=== PATIENT | male | born 1960 | race Caucasian/White ===

== ENCOUNTER 2016-05-31 12:22 | Emergency (ER) | payer OTHER ==
[2016-05-31 12:27] VITALS: BP 142/83; PULSE 59; RESP 16; TEMP 97.3; O2SAT 97
--- NOTE | 2016-05-31 13:32 | EDPHY ---
H & P Stated Complaint: cut left index finger with knife. Time Seen by Provider: 05/31/16 12:38 HPI/ROS: Chief complaint: Left middle finger laceration History of present illness: This is a 56-year-old male who presents to the emergency department for left middle finger laceration. Patient was using a razor blade at work when it slipped cutting the top of his left middle finger. There has been minimal pain. Minimal bleeding, controlled with a dressing. He states he can still flex and extend the finger without difficulty. No report of abnormal coolness or paresthesias in the finger. No other trauma reported. His tetanus is up-to-date. - Personal History Current Tetanus Diphtheria and Acellular Pertussis (TDAP): Yes Tetanus Vaccine Date: within 10 years - Medical/Surgical History Hx Asthma: No Hx Chronic Respiratory Disease: No Hx Diabetes: No Hx Cardiac Disease: No Hx Renal Disease: No Hx Cirrhosis: No Hx Alcoholism: No Hx HIV/AIDS: No Hx Splenectomy or Spleen Trauma: No Other PMH: ortho - Social History Smoking Status: Never smoked - Physical Exam Exam: General: Alert, nontoxic Skin: 1 cm laceration over the mid aspect of the extensor surface of the left 3rd finger. No foreign bodies or deep structures visualized on inspection. Musculoskeletal: Patient has good flexion extension in the DIPJ, PIP and MCP joint. Vascular: Capillary refill brisk in the left 3rd finger. Neurologic: Sensation intact using light touch and two-point discrimination in the left 3rd finger Constitutional: Initial Vital Signs Temperature (C) 36.3 C 05/31/16 12:24 Heart Rate 59 L 05/31/16 12:24 Respiratory Rate 16 05/31/16 12:24 Blood Pressure 142/83 H 05/31/16 12:24 O2 Sat (%) 97 05/31/16 12:24 O2 Delivery Mode Room Air Allergies/Adverse Reactions: No Known Allergies Allergy (Unverified 04/18/14 09:22) Home Medications: Medication Instructions Recorded No Medications [No Meds] 03/12/13 Medical Decision Making Procedures: Procedure: Laceration repair. Verbal consent was obtained from the patient. The 1 cm laceration on the left 3rd finger was anesthetized in the usual fashion. The wound was irrigated, draped and explored to its base with a gloved finger. There were no deep structures involved. No tendon injury was identified. The wound was repaired with 5 0 Prolene, 4 simple interrupted sutures. The wound repair was simple. The procedure was performed by myself. Differential Diagnosis: Patient seen under the supervision of my secondary supervising physician Dr. Wyatt Dill. Patient presents to the emergency department for a left 3rd finger laceration. He has good musculoskeletal control of the finger. He is neurovascularly intact. I do not appreciate evidence of foreign body contamination or deep structure injury. Wound is cleaned, repaired and dressed. He is discharged home and asked to follow up with worker's compensation or a hand doctor for recheck. Return precautions are given. Patient voiced understanding and agreement with plan. Departure - Departure Disposition: Home, Routine, Self-Care Clinical Impression: Finger laceration Qualifiers: Encounter type: initial encounter Qualified Code(s): S61.219A - Laceration without foreign body of unspecified finger without damage to nail, initial encounter Condition: Good Instructions: Care For Your Stitches (ED), Laceration (ED), Acute Wounds (ED) Additional Instructions: Follow-up with hand surgery or worker's compensation for recheck Stitches to be removed in 7 days If symptoms worsen or new symptoms develop return to the emergency department for recheck Referrals: Eva Bundy MD [Primary Care Provider] - As per Instructions Salvatore Boykin MD [Medical Doctor] - As per Instructions
== END 2016-05-31 14:03 | disposition home or self-care (01) ==
PROC: 0HQGXZZ Repair Left Hand Skin, External Approach (ICD-10-PCS; principal; 2016-05-31)
DX: S61.213A Laceration without foreign body of left middle finger without damage to nail, initial encounter (principal); W45.8XXA Other foreign body or object entering through skin, initial encounter; Y92.69 Other specified industrial and construction area as the place of occurrence of the external cause; Y99.0 Civilian activity done for income or pay; Y93.89 Activity, other specified

== ENCOUNTER 2017-03-09 19:52 | Emergency (ER) | payer OTHER ==
[2017-03-09 19:59] VITALS: RESP 16
--- NOTE | 2017-03-09 20:21 | EDPHY ---
H & P Stated Complaint: Lac to head no LOC Time Seen by Provider: 03/09/17 20:18 HPI/ROS: HPI: This is a 57-year-old male presents with Chief Complaint: Scalp laceration Location: Scalp Quality: Laceration Duration: Prior to arrival Signs and Symptoms: No LOC, no neck pain, + bleeding, no radiation, no numbness , no weakness, no tingling, no decreased range of motion, no swelling, + pain Timing: Acute Severity: Moderate Context: Patient reports that he was out walking his dogs when they saw something that cause them to alarm and they pulled on the leash. This in turn cause the patient to lose his balance. He fell forward and hit a sign with the top of his head. He believes the sign had a piece of metal on it that cut his scalp. He felt immediate pain and bleeding started. He applied direct pressure with bleeding cessation. He denies neck pain/LOC. He was ambulatory at the scene. Does not take any blood thinners. Drove self to the emergency room. Modifying Factors: Direct pressure Comment: ROS: see HPI Constitutional: No fever, no chills, no weight loss Eyes: No blurred vision Respiratory: No shortness of breath, no cough Cardiovascular: No chest pain Gastrointestinal: No nausea, no vomiting no diarrhea Genitourinary: No dysuria Extremities: No myalgias Neurologic: No weakness, no numbness Skin: No rashes Hematologic: No bruising, no bleeding MEDICAL/SURGICAL/SOCIAL HISTORY: Medical history: Generally healthy. Does not take any regular medications. Surgical history: Orthopedic surgery Social history: . CONSTITUTIONAL: Polite and cooperative adult white male, awake and alert, no obvious distress HEENT: 6.5 cm deep laceration over left parietal scalp, 1.5 cm superficial laceration in the middle of forehead near the hairline. normocephalic, PERRL, EOMI. no globe entrapment, no raccoon eyes. no Johnson signs.Tympanic membranes clear. No tympanic membrane rupture. Nares patent; no septal hematoma. Oropharynx clear, no exudate and moist pink mucosa. No malocclusion. no dental trauma. Airway patent. No lymphadenopathy. NECK: supple, no midline tenderness, flexion 45 degrees, extension 45 degrees, right and left lateral flexion 45 degrees. No meningismus. Cardiovascular: Normal S1/S2, regular rate, regular rhythm, without murmur rub or gallop. PULMONARY/CHEST: Symmetrical and nontender. no crepitus. Clear to auscultation bilaterally. Good air movement. No accessory muscle usage. ABDOMEN: Soft, nondistended, nontender, no ecchymosis, no rebound, no guarding , no peritoneal signs, no masses or organomegaly. No CVAT. PELVIC: no pain with rocking; bilateral hips flexion 125 degrees, extension 30 degrees, with no pain internal rotation and no pain external rotation. BACK: No midline tenderness, no paraspinous spasm, deep tendon reflexes 2/2, no pain with straight leg raise EXTREMITIES: 2/2 pulses, no deformities, no clubbing, no cyanosis or edema. NEUROLOGICAL: no focal neuro deficits. GCS 15. SKIN: Warm and dry, no erythema. no rash. Good capillary refill. Source: Patient Exam Limitations: No limitations - Personal History Current Tetanus/Diphtheria Vaccine: Yes Current Tetanus Diphtheria and Acellular Pertussis (TDAP): Yes Tetanus Vaccine Date: within 10 years - Medical/Surgical History Hx Asthma: No Hx Chronic Respiratory Disease: No Hx Diabetes: No Hx Cardiac Disease: No Hx Renal Disease: No Hx Cirrhosis: No Hx Alcoholism: No Hx HIV/AIDS: No Hx Splenectomy or Spleen Trauma: No Other PMH: ortho - Social History Smoking Status: Never smoked Constitutional: Initial Vital Signs Temperature (C) 36.6 C 03/09/17 19:57 Heart Rate 71 03/09/17 19:57 Respiratory Rate 16 03/09/17 19:57 Blood Pressure 153/102 H 03/09/17 19:57 O2 Sat (%) 94 03/09/17 19:57 O2 Delivery Mode Room Air Allergies/Adverse Reactions: No Known Allergies Allergy (Verified 03/09/17 19:59) Home Medications: Medication Instructions Recorded No Medications [No Meds] 03/12/13 Medical Decision Making Procedures: Procedure: Laceration repair. Verbal consent was obtained from the patient. The 6.5 cm deep, simple laceration over left parietal scalp was anesthetized in the usual fashion 5 mL of 1% lidocaine with epinephrine. The wound was irrigated, draped and explored to its base with a gloved finger. There were no deep structures involved. No tendon injury was identified. The wound was repaired with #10 grisel. Good hemostasis was achieved and patient tolerated procedure well. Bacitracin applied. The procedure was performed by myself. Procedure: Laceration repair. Verbal consent was obtained from the patient. The 1.5 cm superficial, simple laceration in the middle of forehead near the hairline was anesthetized in the usual fashion 2 mL of 1% lidocaine with epinephrine. The wound was irrigated, draped and explored to its base with a gloved finger. There were no deep structures involved. No tendon injury was identified. The wound was repaired with #8, 6 0 Vicryl 3 buried and 5 simple interrupted. Good hemostasis was achieved and patient tolerated procedure well. Bacitracin and clean sterile dressing applied. The procedure was performed by myself. ED Course/Re-evaluation: Wound and laceration repair Tetanus up-to-date No signs of neurovascular compromise/tenting of skin/compartment syndrome/ extremities and joints examined above and below area of concern and are neurovascularly intact/concussion/LOC. Fall accidental in nature Lacerations repaired with grisel and absorbable sutures. Reynolds given for pain. This patient was seen under the supervision of my primary supervising physician. I evaluated care for this patient independently. Discussed this patient with Dr. Verde who did not see the patient. Differential Diagnosis: Head injury including but not limited to concussion, skull fracture, intraparenchymal contusion, subarachnoid, subdural and epidural hematoma. Departure - Departure Disposition: Home, Routine, Self-Care Clinical Impression: Scalp laceration Qualifiers: Encounter type: initial encounter Qualified Code(s): S01.01XA - Laceration without foreign body of scalp, initial encounter Laceration of forehead without complication Qualifiers: Encounter type: initial encounter Qualified Code(s): S01.81XA - Laceration without foreign body of other part of head, initial encounter Condition: Good Instructions: Head Injury (ED), Staple Care (ED), Care For Your Absorbable Stitches (ED) Additional Instructions: Keep the dressing dry and in place for 48 hours. After 48 hours, you may remove the dressing; wash the site daily with mild soap and water; then pat dry. Take Tylenol Ibuprofen 600 mg every 8 hours with food as needed for pain. Apply ice for 30 minutes at a time; 2-3 times per day for the next 1-2 days. Monitor for signs and symptoms of concussion. Return to the emergency room in 7 days to have your grisel removed. The laceration on your forehead was closed with absorbable sutures and these will slowly dissolve on their own. Referrals: Eva Bundy MD [Primary Care Provider] - As per Instructions
[2017-03-09] MEDS ORDERED: HYDROCODONE/APAP 5/325 TAB PO ONE (20:48)
[2017-03-09] MEDS ORDERED: HYDROCOD/APAP 5/325 PREPACK#6 BTL TAKEHOME ONE (20:49)
[2017-03-09 21:19] VITALS: BP 146/88; PULSE 76; TEMP 98.1; O2SAT 96
== END 2017-03-09 21:13 | disposition home or self-care (01) ==
PROC: 0HQ0XZZ Repair Scalp Skin, External Approach (ICD-10-PCS; principal; 2017-03-09)
PROC: 0HQ1XZZ Repair Face Skin, External Approach (ICD-10-PCS; 2017-03-09)
DX: S01.01XA Laceration without foreign body of scalp, initial encounter (principal); S01.81XA Laceration without foreign body of other part of head, initial encounter; W01.198A Fall on same level from slipping, tripping and stumbling with subsequent striking against other object, initial encounter; Y99.8 Other external cause status; Y93.K1 Activity, walking an animal

== ENCOUNTER → 2017-03-11 | Outpatient (CLI) | payer OTHER | LOC: BMCIMAGING 12:29 | PROVIDERS: ATTEND Family Medicine | DX: M47.892 Other spondylosis, cervical region (principal) ==

== ENCOUNTER 2017-09-12 11:03 | Emergency (ER) | payer OTHER ==
[2017-09-12 11:08] VITALS: BP 145/103
--- NOTE | 2017-09-12 11:20 | CPEKG ---
Heart Rate: 68 RR Interval: 882 P-R Interval: 172 QRSD Interval: 100 QT Interval: 408 QTC Interval: 434 P Princeton: 48 QRS Princeton: -29 T Wave Princeton: 7 EKG Severity - OTHERWISE NORMAL ECG - EKG Impression: SINUS RHYTHM EKG Impression: BORDERLINE LEFT AXIS DEVIATION Electronically Signed By: Johnie Madrid 12-Sep-2017 11:34:38
--- NOTE | 2017-09-12 11:26 | EDPHY ---
H & P Stated Complaint: told by carmelita pre surg ekg gonzales was abnl/freaking out about it Time Seen by Provider: 09/12/17 11:13 HPI/ROS: CHIEF COMPLAINT: Abnormal outpatient EKG HISTORY OF PRESENT ILLNESS: The patient presents to the ED secondary to concerns about a abnormal outpatient EKG. The patient was being evaluated by his primary care provider for hip replacement surgery. He had a preoperative EKG which reportedly had abnormalities. He is scheduled to get a stress test performed at [facility] this week. The patient gives no recent history of exertional chest pain or shortness of breath. He did have an unexplained episode of brief chest discomfort he attributed to indigestion several months ago. The patient has no history of hypertension or diabetes. He reports he has high cholesterol however a high level of HDL typically reported. The patient does not smoke. There is no family history of heart disease. He has no history of exertional chest pain or shortness of breath. REVIEW OF SYSTEMS: A comprehensive 10 point review of systems is otherwise negative aside from elements mentioned in the history of present illness. Source: Patient Exam Limitations: No limitations - Personal History Current Tetanus Diphtheria and Acellular Pertussis (TDAP): Unsure Tetanus Vaccine Date: within 10 years - Medical/Surgical History Hx Asthma: No Hx Chronic Respiratory Disease: No Hx Diabetes: No Hx Cardiac Disease: No Hx Renal Disease: No Hx Cirrhosis: No Hx Alcoholism: No Hx HIV/AIDS: No Hx Splenectomy or Spleen Trauma: No Other PMH: ortho/ hip arthritis - Social History Smoking Status: Never smoked - Physical Exam Exam: General Appearance: Alert, no distress Eyes: Pupils equal and round no pallor or injection ENT, Mouth: Mucous membranes moist Respiratory: There are no retractions, lungs are clear to auscultation Cardiovascular: Regular rate and rhythm Gastrointestinal: Abdomen is soft and nontender, no masses, bowel sounds normal Neurological: 5/5 strength all 4 extremities Skin: Warm and dry, no rashes Musculoskeletal: Neck is supple nontender Extremities: symmetrical, full range of motion Constitutional: Initial Vital Signs Temperature (C) 36.4 C 09/12/17 11:05 Heart Rate 74 09/12/17 11:05 Respiratory Rate 18 09/12/17 11:05 Blood Pressure 145/103 H 09/12/17 11:05 O2 Sat (%) 96 09/12/17 11:05 O2 Delivery Mode Room Air Allergies/Adverse Reactions: No Known Allergies Allergy (Verified 09/12/17 11:05) Home Medications: Medication Instructions Recorded Mobic 15 mg 09/12/17 Medical Decision Making - Diagnostics EKG Interpretation: EKG: Complete interpretation has been separately recorded in the [email or web address] archive. Summary impression: Sinus rhythm, rate 68, borderline left axis deviation, no ST segment elevation or depression appreciated ED Course/Re-evaluation: The patient has no risk factors for coronary artery disease or history of exertional chest pain or shortness of breath. He presents to the ED with nonspecific changes on his EKG and slight left axis deviation. He is scheduled to get a stress test later this week for further risk stratification. The patient's i-STAT troponin is normal in the emergency department. I do not feel that further workup is indicated based solely upon his EKG. The patient has no history of chest pain or shortness of breath. The patient will be discharged home and undergo stress testing within the week. He is clearly instructed to return to the ED for any chest pain, difficulty breathing or other concerns. Differential Diagnosis: Differential diagnosis considered includes acute coronary syndrome, arrhythmia - Data Points Laboratory Results: I-STAT troponin: 0.00 Departure - Departure Disposition: Home, Routine, Self-Care Clinical Impression: Nonspecific abnormal electrocardiogram (ECG) (EKG) Condition: Good Instructions: Chest Pain (ED) Additional Instructions: 1. Your EKG demonstrates no evidence of an obvious heart attack or injury pattern. 2. Your blood testing is reassuring without evidence of detectable cardiac enzymes. 3. Follow up with Cardiology as scheduled for further risk stratification. 4. Return to the ED for any chest pain, shortness of breath or other concerns. Referrals: Rosario Blue MD [Primary Care Provider] - As per Instructions
== END 2017-09-12 11:59 | disposition home or self-care (01) ==
DX: R94.31 Abnormal electrocardiogram [ECG] [EKG] (principal)
CPT/HCPCS: 84484-PO